=== PATIENT | female | born 1955 | race Caucasian/White ===

== ENCOUNTER 2019-05-03 08:26 | Day surgery (SDC) | payer OTHER ==
[2019-04-25 14:00] VITALS: BMI 32.4
[2019-05-03] MEDS ORDERED: ROPIVACAINE HCL 0.5% 30ML VIAL ONE (09:51)
[2019-05-03] MEDS ORDERED: MIDAZOLAM HCL 2 MG/2 ML SINGLE DOSE VIAL ONE ×2 (09:51→11:39)
[2019-05-03] MEDS ORDERED: DEXAMETHASONE SOD PHOSPHATE/PF 10 MG/ML SDV ONE (11:03)
--- NOTE | 2019-05-03 11:07 | PN ---
Progress Note (short form) - Note Progress Note: 67F s/p LEFT shoulder open Kymberly procedure, Neer Decompression, & full thickness primary rotator cuff repair POD #0. -Pain control: Vicodin, NSAID's ordered. -Incentive spirometry. -No chemical DVT PPx. -LUE sling. -No LEFT shoulder ROM. -f/u post-op LEFT shoulder x-ray. -Daily LEFT elbow, wrist & hand ROM. -Keep dressing clean & dry. -f/u in [facility] [place] Office in 7-10 days; call for appointment; . Javier Franks MD (Orthopaedic Surgery).
--- NOTE | 2019-05-03 11:09 | OP ---
Operative Note - Note: Operative Date: 05/03/19 Pre-Operative Diagnosis: Left shoulder impingement syndrome. Left rotator cuff derangement Operation: Left shoulder open: 1. Kymberly procedure. 2. Neer decompression. 3. Rotator cuff repair (partial thickness bursal sided) Findings: Full thickness insertional tear supraspinatus. Implants: 1 x 6.5mm S&N titanium suture anchor Post-Operative Diagnosis: Same as Pre-op Surgeon: Javier Franks Brazer Furnace: Andrea Franks Anesthesiologist/LIQUOR BLENDER: Jessica Hester Anesthesia: Local Specimens Removed: Excision arthroplasty left AC joint Estimated Blood Loss (mls): 50 Fluid Volume Replaced (mls): 600 (Crystalloid) Operative Report Dictated: Yes
[2019-05-03] MEDS ORDERED: PROPOFOL 20 ML ONE ×2 (11:34)
[2019-05-03] MEDS ORDERED: ONDANSETRON 4 MG/2 ML VIAL ONE (11:36)
[2019-05-03] MEDS ORDERED: DEXAMETHASONE SOD PHOSPHATE 4 MG/1 ML VIAL ONE (11:36)
[2019-05-03] MEDS ORDERED: CLINDAMYCIN PHOSPHATE 600 MG/4 ML VIAL ONE (11:44)
[2019-05-03] MEDS ORDERED: TRANEXAMIC ACID 1000 MG/10 ML VIAL ONE (12:32)
[2019-05-03] MEDS ORDERED: traMADol HCL 50 MG TABLET PO PRN (13:51)
[2019-05-03] MEDS ORDERED: ALBUTEROL SO4 8 GM HFA INHALER IH PRN (13:51)
[2019-05-03] MEDS ORDERED: oxyCODONE HCL 5 MG TABLET PO PRN ×2 (13:56)
[2019-05-03] MEDS ORDERED: ONDANSETRON 4 MG/2 ML VIAL IVPUSH PRN (13:56)
[2019-05-03] MEDS ORDERED: PROMETHAZINE HCL 25 MG/1 ML VIAL IVPUSH PRN (13:56)
[2019-05-03] MEDS ORDERED: EXENATIDE 2 MG SQ SCH (14:00)
[2019-05-03 15:40] VITALS: TEMP 98.5
[2019-05-03 15:43] VITALS: BP 136/72; PULSE 90
--- NOTE | 2019-05-03 18:56 | OP ---
DATE OF OPERATION: DATE OF DICTATION: 05/03/2019 SURGEON: Javier Franks M.D. TALENT MANAGEMENT SPECIALIST: Andrea Franks M.D. PREOPERATIVE DIAGNOSIS: Impingement syndrome with rotator cuff tear, left shoulder. POSTOPERATIVE DIAGNOSIS: Impingement syndrome with rotator cuff tear, left shoulder. OPERATION PERFORMED: 1. Kymberly excision arthroplasty clavicle. 2. Acromioplasty. 3. Repair rotator cuff. 4. Transection of coracoacromial ligament. ANESTHESIA: General anesthesia with scalene nerve block. ANTIBIOTICS GIVEN: 2 g Ancef. OPERATION DETAILS: The patient was correctly identified, brought in operating room, placed in a beach chair position under general anesthesia. All bony prominent points appropriately padded. The facial structures padded and guarded appropriately. Left upper extremity was prepped, draped in the routine manner with Betadine scrub solution, wiped off with alcohol, DuraPrep applied. A free drape was applied. Operation details: An incision is made from the tip of the acromion to the tip of the coracoid in the lines of Garrick. Skin dissection was taken through skin and subcutaneous tissue to the level of the muscle of deltoid. The flap was developed superiorly. Sharp Hohmann placed from the posterior surface of the clavicle, and then sharp Hohmann placed in the anterior undersurface of the clavicle to protect AC joint, which was identified clearly. The joint was entered, and using an oscillating saw 1 cm bone was resected while performing a beveled osteotomy distal clavicle and the bony block removed. This gave access to the subacromial space, which was significantly contracted, could barely get a finger in the space between the acromion and the actual humeral head. Multiple rice body type calcific bodies removed, washed out liberally. Once this had been completed, the humeral head was held out of harm's way by placing a blunt Hohmann on the undersurface of the acromion. The acute acromion was severely impinged on any, and continued with the significant osteoarthritis that was encountered in the actual joint. At that point, the plane between the deltoid and the CA ligament was developed, this using a navy retractor combined with a peanut. The ligament was visualized clearly, transected in the mid section between the coracoid and the acromion. Complete transection of the ligament occurred. Hemorrhage was control was achieved with bipolar Bovie. Subacromial space was now more readily amenable to entry and further rice bodies were removed at that point. These were liberally washed out all the joints. With the blunt tip of the Hohmann placed under the acromion, leaving the humeral head down, a noticeable marked thickening of the acromion with a type C leaking of the acromion encountered. Digging into the soft tissue mass with a rotator cuff was already clearly apparent. Using oscillating saw, the acromion was thinned out extensively achieved an adequate decompression and no impingement as this was visualized on the field with the palpation as well as visually, the humeral head continued to impinge itself on the surface of the acromion until the adequate bone of the undersurface of the acromion was dissected. Once this had been achieved, unfortunately because of the thickness of the tissue, the smaller remaining acromion itself from the main body of the spine of scapula, but was stitched back and held in position appropriately. The rotator cuff was then visually inspected throughout. An extensive tear with the footplate being the attachment point of the greater tuberosity was noted as the peripheral margin of the tear was resected to provide healthy bleeding blood supply tissue. Because of the inability to achieve any soft tissue repair, one large anchor was applied, a 5.5 anchor with 2 sutures attached to it, and these were then, the suture brought from the other surface of the rotator cuff tear, and turned on itself, thus bringing about an excellent reconstruction of the rotator cuff attachment point. A single 1 Vicryl suture was also utilized to augment this fixation. These were then per osseus sutures accordingly. Solid reattachment of the torn muscle to the bone was achieved. The wounds were thoroughly lavaged. The muscles were approximated with 1 Vicryl acromion and with good position at its anatomic position and held with sutures. Closure: Muscle 1 Vicryl, subcutaneous 1 and 2-0 Vicryl, skin 3-0 Monocryl with Steri-Strips. Operation must be noted this was an extremely difficult procedure because of the extensive pathology noted and the difficulty in releasing enough bone to achieve the appropriate decompression accordingly. MD DANY Rodríguez/[id number]
[2019-05-03] MEDS ORDERED: rOPINIRole HCL 0.5 MG TABLET PO SCH (22:00)
[2019-05-03] MEDS ORDERED: ROSUVASTATIN CA 10 MG TABLET (FP) PO SCH (22:00)
[2019-05-03] MEDS ORDERED: PREGABALIN 75 MG CAPSULE PO SCH (22:00)
[2019-05-03] MEDS ORDERED: PREGABALIN 25 MG CAPSULE PO SCH (22:00)
[2019-05-04] MEDS ORDERED: metFORMIN HCL 500 MG TABLET (FP) PO SCH (07:00)
[2019-05-04] MEDS ORDERED: LOSARTAN HCTZ PO SCH (10:00)
[2019-05-04] MEDS ORDERED: TIOTROPIUM BROMIDE 2.5 MCG (SPIRIVA) RESPIMAT INHALER IH SCH (10:00)
[2019-05-04] MEDS ORDERED: LOSARTAN 50MG/HCTZ 12.5MG 1 TAB (FP) PO SCH (10:00)
--- NOTE | 2019-05-07 15:42 | PATH ---
Surgical Pathology Report Patient Name: VARINDER GREGG Med. Rec. #: [id number] /Age/Gender: 1955 (Age: 63) / F Account: [id number] Location: [facility] Taken: 05/03/2019 Received: 05/03/2019 Reported: 05/07/2019 Physicians: Javier Franks M.D. Specimen(s) Received LEFT SHOULDER CALCIFICATIONS Clinical History Rotator cuff other injury of muscle and tendon, left shoulder Final Diagnosis SHOULDER, LEFT, CALCIFICATIONS, ARTHROSCOPIC SHAVINGS: FRAGMENTS OF CARTILAGE WITH FOCAL OSSEOUS TISSUE, COMPATIBLE WITH OSTEOCHONDRAL LOOSE BODIES. Electronically Signed Chrystal Bustamante M.D. Gross Description Received in formalin labeled "left shoulder calcification," is a 2.0 x 0.8 x 0.2 cm aggregate otero portions of cartilaginous tissue. The specimen is entirely submitted in one cassette. 05/06/201905/06/2019
== END 2019-05-03 15:30 | disposition home or self-care (01) ==
LOC: FASU 08:26
PROVIDERS: ATTEND Orthopaedic Surgery Orthopaedic Surgery of the Spine
PROC: 0MN20ZZ Release Left Shoulder Bursa and Ligament, Open Approach (ICD-10-PCS; 2019-05-03)
PROC: 0LQ20ZZ Repair Left Shoulder Tendon, Open Approach (ICD-10-PCS; 2019-05-03)
PROC: 0PBB0ZZ Excision of Left Clavicle, Open Approach (ICD-10-PCS; principal; 2019-05-03 12:09)
DX: M75.42 Impingement syndrome of left shoulder (principal); M75.122 Complete rotator cuff tear or rupture of left shoulder, not specified as traumatic
CPT/HCPCS: 73030-TC-LT-FY; 82962; 88304-TC; 94760